=== PATIENT | male | born 1955 | race Caucasian/White ===

== ENCOUNTER → 2019-12-23 | Outpatient (CLI) | payer BC | LOC: COL.RAD 12-06 13:45 | DX: M25.512 Pain in left shoulder (principal) | CPT/HCPCS: J3301; Q9967 ==

== ENCOUNTER → 2022-09-21 | Outpatient (CLI) | payer MEDICARE, OTHER | LOC: COL.RAD 07:55 | DX: K76.0 Fatty (change of) liver, not elsewhere classified (principal); J44.9 Chronic obstructive pulmonary disease, unspecified; R06.02 Shortness of breath | CPT/HCPCS: Q9967 ==

== ENCOUNTER → 2023-01-19 | Outpatient (CLI) | payer MEDICARE, OTHER | LOC: COL.PUL 13:52 | DX: R06.02 Shortness of breath (principal) | CPT/HCPCS: J7674 ==

== ENCOUNTER 2024-09-13 10:08 | Day surgery (SDC) | payer MEDICARE, OTHER ==
[~2024-09-13] VITALS: Ht 198.1 cm; Wt 130.5 kg
[~2024-09-13 10:08] MED LIST: LR 1,000 ML IV SCH; Ondansetron 4 MG/2 ML VIAL IV PRN
[2024-09-13] MEDS ORDERED: COZAAR 50MG50 MG/TAB PO (11:02)
[2024-09-13] MEDS ORDERED: CELEXA 20MG20 MG/TAB PO (11:02)
[2024-09-13] MEDS ORDERED: FLOMAX 0.40.4 MG/CAP PO (11:03)
[2024-09-13] MEDS ORDERED: SYNTHROID0.1 MG/TAB PO (11:03)
[2024-09-13] MEDS ORDERED: FARXIGA5 PO (11:03)
[2024-09-13] MEDS ORDERED: FLONASE NASAL S16 GM NS (11:04)
[2024-09-13] MEDS ORDERED: NORVASC 5MG5 MG/TAB PO (11:04)
[2024-09-13] MEDS ORDERED: VITAMIN D31000 IU PO (11:05)
[2024-09-13] MEDS ORDERED: GLUCOSAMINE & C1 CA2 PO (11:05)
[2024-09-13] MEDS ORDERED: ADULT MULTIVIT1 EACH PO (11:05)
[2024-09-13 11:06] VITALS: BP 136/93; PULSE 66; TEMP 97.3
--- NOTE | 2024-09-13 11:25 | NUR ---
The patient ambulated back to [place] [facility] independently using a steady gait and appeared to tolerate the activity well. Vital signs obtained. Consent signed. 20G IV started in right hand with one stick, LR infusing without difficulty. Assessment completed. Home medications reconcilled. , Kelly, at bedside. Warm blankets provided to both. The patient denies any further needs at this time.
[2024-09-13 12:25] VITALS: BP 107/79; PULSE 66; TEMP 97.2
--- NOTE | 2024-09-13 12:25 | NUR ---
1225: Pt arrives to [facility] via cart. Awake, alert, amb to chair, present in room. VSS on room air. Denies nausea/pain. 1230: Dr Lopez in to talk to pt/spouse. 1245: Discharge instructions reviewed, understanding verbalized. Questions invited and answered.
[2024-09-13 12:40] VITALS: BP 121/81; PULSE 64
[2024-09-13 14:26] VITALS: BP 109/86; PULSE 64
== END 2024-09-13 12:50 | disposition home or self-care (01) ==
LOC: SDCO 10:08
DX: Z12.11 Encounter for screening for malignant neoplasm of colon (principal); D12.3 Benign neoplasm of transverse colon; D12.2 Benign neoplasm of ascending colon; K57.30 Diverticulosis of large intestine without perforation or abscess without bleeding; K64.0 First degree hemorrhoids; E66.9 Obesity, unspecified; Z68.34 Body mass index [BMI] 34.0-34.9, adult
CPT/HCPCS: J2704; J7120